=== PATIENT | female | born 1945 | race Caucasian/White ===

== ENCOUNTER 2016-10-29 10:11 | Inpatient (IN) | payer MEDICARE, OTHER ==
--- NOTE | ~2016-10-29 | HP ---
History And Physical [facility] [address] [place]. [address] NAME: SABRINA KRAUS : 47 STATUS : ADM IN PAT#: [id number] AGE: 71 ADM/REG DATE : 10/29/16 MR#: [id number] REPORT SERV DATE: 10/29/16 DICTATED BY: KASSIDY LEIJA DATE: 10/29/16 REPORT STATUS : Draft TRANSCRIBED BY: MODL DATE: 10/29/16 DATE OF ADMISSION: 10/29/2016 CHIEF COMPLAINT: Chest pain. HISTORY OF PRESENT ILLNESS: The patient is a 71-year-old female with a history of nonischemic cardiomyopathy, last seen by my partner Dr. Juan Francisco Holland on 11/09/2015. An echocardiogram performed at that time demonstrated preserved left ventricular systolic function with an ejection fraction of 50%. Previous nuclear perfusion stress test that demonstrated a possible inferoseptal scar. A subsequent CT angiogram of the coronaries demonstrated no significant coronary artery disease and no calcium within the coronary vessel cummins. 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 She describes a 9/10 intensity chest pain with a pressure-heaviness sensation, associated dyspnea. The patient had no significant radiation of the discomfort. The patient was seen at [facility] in [place], [place]. An electrocardiogram was performed, which demonstrated left bundle-branch block with ST-segment elevation in the inferior leads consistent with an acute inferior wall myocardial infarction. The Code STEMI protocol was activated, and the patient was transferred emergently with direct admission to the cardiac catheterization laboratory at [facility] in [place], [place]. On arrival in catheterization laboratory, the patient continued to complain of 7/10 intensity chest pain. PAST MEDICAL HISTORY: 1. Nonischemic cardiomyopathy with recovery of ejection fraction. An ejection fraction of 56% by echo 10/20/2015. 2. Hypertension. 3. Hyperlipidemia. 4. Anxiety disorder. 5. Insomnia. ALLERGIES: PENICILLIN. SOCIAL HISTORY: Tobacco use: Patient denies tobacco use for the last 9 years. Prior to that time, the patient smoked for approximately 45 years, smoking on average a pack of cigarettes per day. Patient denies alcohol or illicit drug use. FAMILY HISTORY: Brother who of myocardial infarction in his late 30s. Father who of myocardial infarction in his early 60s. REVIEW OF SYSTEMS: Negative for all organ systems except per the history of present illness. PHYSICAL EXAMINATION: VITALS: Blood pressure 153/84, pulse 72, respirations 16 and unlabored, saturating 99% on 2 History And Physical [address] [place]. [address] NAME: SABRINA KRAUS : 47 STATUS : ADM IN PAT#: [id number] AGE: 71 ADM/REG DATE : 10/29/16 MR#: [id number] REPORT SERV DATE: 10/29/16 DICTATED BY: KASSIDY LEIJA DATE: 10/29/16 REPORT STATUS : Draft TRANSCRIBED BY: LAVELLE DATE: 10/29/16 liters nasal cannula. Weight 263 pounds. GENERAL: An elderly female, in moderate distress secondary to chest pain. HEENT: Normal. NECK: Supple. No JVD or bruit. Normal carotid upstroke bilaterally. No thyromegaly. LUNGS: Clear to auscultation and percussion. No wheezes, rales or rhonchi. No use of accessory muscles. CARDIOLOGY: Regular rhythm. Normal S1, S2. No thrill. No murmur, rubs or gallops. Normal PMI. ABDOMEN: Bowel sounds positive, soft, nontender, and obese. No masses or aortic bruits. No hepatosplenomegaly or hepatojugular reflux. EXTREMITIES: No edema. Normal pulses. No clubbing or cyanosis. SKIN: Warm and dry. No significant rash. NEUROLOGIC: Alert and oriented x3. Appropriate mood. EKG: Left bundle-branch block. The inferior ST-segment elevation in leads II and aVF. LABORATORIES: Pending at the time of arrival in the catheterization laboratory. IMPRESSION: Acute inferior wall ST-segment elevation myocardial infarction. The patient received emergently in the cardiac catheterization laboratory for angiography and intervention. Please see details of procedure under cardiac catheterization PCI report. 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 No flow limiting CAD within the left coronary system. Admission to the cardiac intensive care unit for post myocardial infarction management. Guideline directed dual anti-platelet therapy with management of hypertension and hyperlipidemia. CSL/MODL Traci Leija M.D. / [id number] CC: Traci Leija M.D.
[2016-10-29 11:25] LABS: CREATININE 0.8 MG/DL (0.55-1.02)
[2016-10-29 13:21] LABS: BASOPHILS 0.3 %; BASOPHILS ABSOLUTE 0.02 10/3/uL (0.0-0.16); EOSINOPHILS 1.4 %; EOSINOPHILS ABSOLUTE 0.09 10/3/uL (0.0-0.53); HEMATOCRIT 34.5 % (36.0-48.0); HEMOGLOBIN 11.7 g/dL (12.0-16.0); IMMATURE GRANULOCYTES 0.2 %; IMMATURE GRANULOCYTES ABSOLUTE 0.01 10/3/uL (0.0-0.11); LYMPHOCYTES 19.8 %; LYMPHOCYTES ABSOLUTE 1.31 10/3/uL (0.67-4.30); MANUAL DIFF NO %; MEAN CORPUS HGB CONC 33.9 g/dL (32.0-36.0); MEAN CORPUSCULAR HEMOGLOB 32.1 pg (26.0-34.0); MEAN CORPUSCULAR VOLUME 94.5 fL (80-100); MONOCYTES 10.4 %; MONOCYTES ABSOLUTE 0.69 10/3/uL (0.21-1.20); NEUTROPHILS 67.9 %; NEUTROPHILS ABSOLUTE 4.51 10/3/uL (2.02-8.40); PLATELET COUNT 160 10/3/uL (150-400); RBC DISTRIBUTION WIDTH 12.8 % (12.0-16.0); RED CELL COUNT 3.65 10/6/uL (4.0-5.6); WHITE BLOOD CELLS 6.6 10/3/uL (4.5-10.5)
[2016-10-29 13:50] LABS: ALBUMIN 3.6 G/DL (3.5-5.0); ALKALINE PHOSPHATASE 164 U/L (45-117); BUN (BLOOD UREA NITROGEN) 18 MG/DL (6-23); CHLORIDE, SERUM 106 MMOL/L (96-112); CK-MB 103.7 NG/ML; CKMB INDEX (NOT ORD) 9.2; CO2 (CARBON DIOXIDE) 26 MMOL/L (24-34); CPK 1132 U/L (0-200); CREATININE 1.13 MG/DL (0.55-1.02); GFR AFRICAN AMERICAN 57 ML/MIN (>=60); GFR NON AFRICAN AMERICAN 49 ML/MIN (>=60); GLOBULIN 3.7 G/DL (2.5-4.1); GLUCOSE, SERUM 124 MG/DL (60-99); POTASSIUM, SERUM 4.4 MMOL/L (3.5-5.3); SGOT(AST) 122 U/L (5-40); SGPT(ALT) 36 U/L (5-65); SODIUM, SERUM 141 MMOL/L (135-148); TOTAL BILIRUBIN 0.4 MG/DL (0-1.2); TOTAL PROTEIN 7.3 G/DL (6.0-8.5)
[2016-10-29] MEDS ORDERED: L40 PO (15:06)
[2016-10-29] MEDS ORDERED: SEROQUEL50 MG PO (15:07)
[2016-10-29] MEDS ORDERED: Z300 PO (15:07)
[2016-10-29] MEDS ORDERED: SEROQUEL25 PO (15:07)
[2016-10-29] MEDS ORDERED: AMB10 PO (15:07)
[2016-10-29] MEDS ORDERED: X25 PO (15:08)
[2016-10-29] MEDS ORDERED: ADVIL PO (15:08)
[2016-10-29] MEDS ORDERED: NEUR300 PO (15:08)
[2016-10-29 16:10] LABS: POTASSIUM, SERUM 4.1 MMOL/L (3.5-5.3)
[2016-10-29 20:51] LABS: CK-MB 238.7 NG/ML; CKMB INDEX (NOT ORD) 11.4
[2016-10-30 05:10] LABS: BASOPHILS 0.3 %; BASOPHILS ABSOLUTE 0.02 10/3/uL (0.0-0.16); EOSINOPHILS 1.5 %; EOSINOPHILS ABSOLUTE 0.12 10/3/uL (0.0-0.53); HEMOGLOBIN 11.5 g/dL (12.0-16.0); IMMATURE GRANULOCYTES 0.3 %; IMMATURE GRANULOCYTES ABSOLUTE 0.02 10/3/uL (0.0-0.11); LYMPHOCYTES 20.3 %; LYMPHOCYTES ABSOLUTE 1.62 10/3/uL (0.67-4.30); MEAN CORPUS HGB CONC 33.8 g/dL (32.0-36.0); MEAN CORPUSCULAR HEMOGLOB 32.2 pg (26.0-34.0); MEAN CORPUSCULAR VOLUME 95.2 fL (80-100); MEAN PLATELET VOLUME 9.7 fL (9.2-13.0); MONOCYTES 14.7 %; MONOCYTES ABSOLUTE 1.17 10/3/uL (0.21-1.20); NEUTROPHILS 62.9 %; NEUTROPHILS ABSOLUTE 5.03 10/3/uL (2.02-8.40); PLATELET COUNT 169 10/3/uL (150-400); RBC DISTRIBUTION WIDTH 12.6 % (12.0-16.0); RED CELL COUNT 3.57 10/6/uL (4.0-5.6)
[2016-10-30 05:12] LABS: MANUAL DIFF NO %
[2016-10-30 05:44] LABS: BUN (BLOOD UREA NITROGEN) 21 MG/DL (6-23); CALCIUM, SERUM 8.8 MG/DL (8.5-10.4); CHLORIDE, SERUM 104 MMOL/L (96-112); CHOL/HDL RATIO(NOT ORDER) 3.5 (0-5); CHOLESTEROL 170 MG/DL (< 200); CK-MB 150.9 NG/ML; CO2 (CARBON DIOXIDE) 28 MMOL/L (24-34); CPK 1683 U/L (0-200); CREATININE 1.09 MG/DL (0.55-1.02); GFR AFRICAN AMERICAN 60 ML/MIN (>=60); GFR NON AFRICAN AMERICAN 51 ML/MIN (>=60); GLUCOSE, SERUM 113 MG/DL (60-99); HDL CHOLESTEROL 48 MG/DL (> 49); LDL CHOLESTEROL 85 MG/DL (< 130); NON-HDL CHOLESTEROL 122 MG/DL (< 160); POTASSIUM, SERUM 4.1 MMOL/L (3.5-5.3); SODIUM, SERUM 141 MMOL/L (135-148); TRIGLYCERIDE 187 MG/DL (< 150)
[2016-10-30 14:05] LABS: CK-MB 90.8 NG/ML
[2016-10-30 14:06] LABS: CKMB INDEX (NOT ORD) 6.2
[2016-10-31 06:44] LABS: BASOPHILS 0.3 %; BASOPHILS ABSOLUTE 0.02 10/3/uL (0.0-0.16); EOSINOPHILS 1.7 %; EOSINOPHILS ABSOLUTE 0.13 10/3/uL (0.0-0.53); HEMATOCRIT 33.4 % (36.0-48.0); HEMOGLOBIN 11.3 g/dL (12.0-16.0); IMMATURE GRANULOCYTES 0.3 %; IMMATURE GRANULOCYTES ABSOLUTE 0.02 10/3/uL (0.0-0.11); LYMPHOCYTES ABSOLUTE 1.97 10/3/uL (0.67-4.30); MEAN CORPUS HGB CONC 33.8 g/dL (32.0-36.0); MEAN CORPUSCULAR HEMOGLOB 32.2 pg (26.0-34.0); MEAN CORPUSCULAR VOLUME 95.2 fL (80-100); MEAN PLATELET VOLUME 9.9 fL (9.2-13.0); MONOCYTES 11.3 %; MONOCYTES ABSOLUTE 0.86 10/3/uL (0.21-1.20); NEUTROPHILS 60.4 %; NEUTROPHILS ABSOLUTE 4.59 10/3/uL (2.02-8.40); PLATELET COUNT 173 10/3/uL (150-400); RBC DISTRIBUTION WIDTH 12.8 % (12.0-16.0); RED CELL COUNT 3.51 10/6/uL (4.0-5.6); WHITE BLOOD CELLS 7.6 10/3/uL (4.5-10.5)
[2016-10-31 06:45] LABS: MANUAL DIFF NO %
[2016-10-31 06:54] LABS: CALCIUM, SERUM 8.8 MG/DL (8.5-10.4); CHLORIDE, SERUM 101 MMOL/L (96-112); CO2 (CARBON DIOXIDE) 25 MMOL/L (24-34); CREATININE 1.36 MG/DL (0.55-1.02); GFR AFRICAN AMERICAN 46 ML/MIN (>=60); GFR NON AFRICAN AMERICAN 39 ML/MIN (>=60); GLUCOSE, SERUM 105 MG/DL (60-99); POTASSIUM, SERUM 3.8 MMOL/L (3.5-5.3); SODIUM, SERUM 138 MMOL/L (135-148)
[2016-10-31 06:55] LABS: BUN (BLOOD UREA NITROGEN) 33 MG/DL (6-23)
[2016-10-31] MEDS ORDERED: PRAVACHOL40 MG PO (10:29)
[2016-10-31] MEDS ORDERED: BREO ELLIPTA INH (10:31)
[2016-10-31] MEDS ORDERED: PROVHFA PO (10:32)
[2016-10-31] MEDS ORDERED: COREG6 PO (13:10)
[2016-10-31] MEDS ORDERED: PRIN2.5 PO (13:11)
[2016-10-31] MEDS ORDERED: BRILINTA90 MG PO (13:13)
[2016-10-31] MEDS ORDERED: ASAB PO (13:15)
[2016-10-31] MEDS ORDERED: LIPITOR40 PO (13:16)
[2016-10-31] MEDS ORDERED: NITROSTAT0.4 MG SL (13:19)
== END 2016-10-31 14:57 | disposition home or self-care (01) | DRG 246 ==
LOC: SSU2 10:11 → CCU 11:58 → 7NO 10-30 12:01
PROVIDERS: Internal Medicine Cardiovascular Disease; Nurse Practitioner Family
PROC: 027034Z Dilation of Coronary Artery, One Artery with Drug-eluting Intraluminal Device, Percutaneous Approach (ICD-10-PCS; principal; 2016-10-29)
PROC: 4A023N7 Measurement of Cardiac Sampling and Pressure, Left Heart, Percutaneous Approach (ICD-10-PCS; 2016-10-29)
PROC: B2151ZZ Fluoroscopy of Left Heart using Low Osmolar Contrast (ICD-10-PCS; 2016-10-29)
PROC: B2111ZZ Fluoroscopy of Multiple Coronary Arteries using Low Osmolar Contrast (ICD-10-PCS; 2016-10-29)
DX: I21.19 ST elevation (STEMI) myocardial infarction involving other coronary artery of inferior wall (principal); I50.21 Acute systolic (congestive) heart failure; J96.10 Chronic respiratory failure, unspecified whether with hypoxia or hypercapnia; I42.9 Cardiomyopathy, unspecified; Z99.81 Dependence on supplemental oxygen; I44.7 Left bundle-branch block, unspecified; I25.10 Atherosclerotic heart disease of native coronary artery without angina pectoris; E78.5 Hyperlipidemia, unspecified; F41.9 Anxiety disorder, unspecified; G47.00 Insomnia, unspecified; F17.210 Nicotine dependence, cigarettes, uncomplicated; Z88.0 Allergy status to penicillin; J44.9 Chronic obstructive pulmonary disease, unspecified; I11.0 Hypertensive heart disease with heart failure
CPT/HCPCS: 71010; 80048; 80053; 80061; 82550; 82553; 82565; 83735; 84132; 84295; 84484; 85025; 87641; 93005; 93458; 94640; 99152; 99153; A9270-GY; C1725; C1760; C1769; C1874; C1887; C1894; C8929; C9606; J0583; J2250; J2405; J3010; Q9957; Q9967